=== PATIENT | female | born 1950 | race Caucasian/White ===

== ENCOUNTER 2021-08-01 11:34 | Emergency (ER) | payer MEDICARE, SELFPAY ==
--- NOTE | ~2021-08-01 | XR_ITS ---
EXAMINATION: LEFT HAND/WRIST. CLINICAL INFORMATION: Fall. COMPARISON: None TECHNIQUE: 4 views left hand and wrist FINDINGS: There is a comminuted fracture distal radius with intra-articular extension and mild dorsal angulation. No additional fracture seen. There is no abnormal joint effusion. The soft tissues are normal. XR/XR hand wrist LT IMPRESSION: Comminuted fracture distal radius with intra-articular extension. Moderate dorsal wrist soft tissue swelling.
[2021-08-01 11:36] VITALS: BP 135/78; PULSE 80; RESP 18; TEMP 36.6; O2SAT 98; BMI 25.8
--- NOTE | 2021-08-01 15:40 | ED.EXTPRO ---
HPI - Extremity Problem General Chief complaint: Extremity Injury, Upper Stated complaint: hand inj fall Time Seen by Provider: 08/01/21 15:17 Source: patient Mode of arrival: ambulatory Limitations: no limitations History of Present Illness HPI Narrative: 71-year-old female with a history of high cholesterol here with reports of left wrist pain after a fall which occurred just prior to arrival. Patient tells me that she was walking her dog when she slipped on ice landing on her left hand that was outstretched. Since then she has had pain and swelling of the wrist. She denies any numbness, tingling, warmth redness or fever. Related Data Allergies Allergy/AdvReac Type Severity Reaction Status Date / Time No Known Allergies Allergy Verified 08/01/21 15:17 Review of Systems Review of Systems: Yes all other systems are reviewed and are negative Constitutional: Constitutional: Reports no additional constitutional complaints, Denies body ache(s), Denies chills, Denies fever(s), Denies headache(s) and Denies weakness Eyes: Eyes: Reports no additional eye complaints and Denies change in vision ENT: Reports system reviewed and no additional complaints, except as documented, Denies dizziness, Denies headache(s), Denies nasal congestion, Denies nasal discharge and Denies neck pain Cardiovascular: Cardiovascular: Reports no additional cardiovascular complaints, Denies chest pain, Denies leg edema and Denies dyspnea Respiratory: Respiratory: Reports no additional respiratory complaints, Denies cough and Denies dyspnea Gastrointestinal: Gastrointestinal: Reports no additional gastrointestinal complaints, Denies abdominal pain, Denies diarrhea, Denies nausea and Denies vomiting Genitourinary: Genitourinary: Reports no additional female genitourinary complaints and Denies urinary incontinence Musculoskeletal: Musculoskeletal: Reports no additional musculoskeletal complaints, Denies back pain, Reports arthralgias, Reports joint swelling, Reports limited range of motion, Denies neck pain, Denies numbness and Denies tingling Integumentary/Breasts: Skin/Breast: Reports system reviewed and no additional complaints, except as docu and Denies rash Neurologic: Reports system reviewed and no additional complaints, except as documented, Denies Abnormal speech present, Denies dizziness, Denies headache(s), Denies numbness, Denies tingling and Denies weakness PMFSH Past Medical History Attestation statement: The following information was validated with the patient. Source: old records reviewed and nursing notes reviewed Social History Social History Advance Directives: Yes Advance Directives Information Provided: Yes Advance Directives on File: No Physical Exam Vital Signs: Vital Signs: Last Vital Signs Temp 98 F 08/01/21 11:36 Pulse 80 08/01/21 11:36 Resp 18 08/01/21 11:36 BP 135/78 08/01/21 11:36 Pulse Ox 98 08/01/21 11:36 BMI result Body Mass Index 25.8 Const: General: cooperative, healthy appearing, comfortable and no acute distress Orientation/consciousness: patient oriented x3 Limitations: no limitations HENMT: Head: Yes normal to inspection Ears: hearing grossly normal bilaterally General nose exam: Normal external nose present Face and sinus: Yes normal facial exam Mouth: Normal oral and palatal mucosa present Throat: Yes posterior oropharynx normal Eyes: General: appearance normal, both eyes and all related structures Pupils: Equal, round and reactive pupils present Neck: Neck: Yes normal visual inspection Chest: Chest palpation & inspection: normal inspection of the chest Resp: Effort & Inspection: normal respiratory effort Auscultation: clear to auscultation bilaterally Cardio: Rate: regular rate Rhythm: regular rhythm Peripheral pulses: Peripheral pulses 2+ throughout GI: Inspection: Yes normal to inspection Palpation (GI): Soft to palpation and nontender Auscultation: normal bowel sounds Back/Spine/Pelvis: Thoracic/Lumbar Spine: thoracic and lumbar spine normal to inspection Skin: General skin exam: no rashes or lesions noted Neuro: General: patient oriented x3, no focal motor deficits and normal sensation to monofilament Cranial nerves: Yes Equal, round and reactive pupils present Cognition (Neuro): normal cognition Speech: No Abnormal speech present Gait exam (Neuro): Normal gait present Motor exam (neuro): 5/5 motor strength present throughout Extrem: Other: To the left dorsal wrist there is swelling and tenderness over the radius. Limited range of motion of the wrist due to pain. Neurovascularly intact distally to the injury. No reports of elbow or shoulder pain with full range of motion General: Yes normal to inspection Course Course Course Narrative: 71-year-old female [id number] here with mechanical fall with FOOSH on the left upper extremity with swelling and tenderness over the distal radius with limited range of motion. X-ray show a comminuted intra-articular left radial fracture. Patient was placed in a sugar-tong splint and given a sling for home. I spoke to the orthopedic department Salbador CEBALLOS who will follow-up with the patient in the office. Patient tells me she has Tylenol and Motrin at home and this is sufficient for her pain. We discussed splint care, rice, follow-up. Reviewed worrisome signs and symptoms of when to return to the emergency department. Comfortable discharge home. MDM - Extremity (Nontraumatic) Medical Records Attestation: I reviewed the patient's medical records. Imaging Data left wrist x-ray: Attestation: I personally reviewed and interpreted this imaging study as follows: Radiologist's impression: [address] [address] XRay Report Signed Patient: Kathryn Kahn MR#: [id number] : 1950 Acct:[id number] Age/Sex: 71 / F ADM Date: 08/01/21 Loc: .ED Attending Dr: Ordering Physician: Generic ED Physician Date of Service: 08/01/21 Procedure(s): XR hand wrist LT Accession Number(s): [id number] cc: Generic ED Physician~ EXAMINATION: LEFT HAND/WRIST. CLINICAL INFORMATION: Fall.? COMPARISON: None? TECHNIQUE: 4 views left hand and wrist? FINDINGS: There is a comminuted fracture distal radius with intra-articular extension and mild dorsal angulation. No additional fracture seen. There is no abnormal joint effusion. The soft tissues are normal.? XR/XR hand wrist LT IMPRESSION: Comminuted fracture distal radius with intra-articular extension. Moderate dorsal wrist soft tissue swelling. ? Procedures Orthopedic Splinting/Casting Injury #1: Side: left Upper Extremity Injury Location: forearm Upper Extremity Immobilizer: sugar tong splint Discharge Plan Discharge Clinical Impression: Distal radius fracture, left Patient Disposition: Home, Self-Care Instructions: Wrist Fracture in Adults (ED), Splint Care (ED) Additional Instructions: Splint must stay on all times Do not get the splint wet Sling is for comfort only Elevate the extremity on 3 or more pillows Orthopedic should call you for an appointment tomorrow or Friday. If you do not hear from them by 12:00 tomorrow please call them Alternate Motrin and Tylenol for pain as needed Referrals: Chente Angel MD [Physician] - 2 days
== END 2021-08-01 15:51 | disposition home or self-care (01) ==
PROVIDERS: Emergency Provider Emergency Medicine
DX: S52.572A Other intraarticular fracture of lower end of left radius, initial encounter for closed fracture (principal); W00.0XXA Fall on same level due to ice and snow, initial encounter; Y93.K1 Activity, walking an animal; Y92.480 Sidewalk as the place of occurrence of the external cause; Y99.9 Unspecified external cause status
CPT/HCPCS: 29125; 73110; 73130; 99283; 99284

== ENCOUNTER 2021-08-07 07:12 | Outpatient (REF) | payer MEDICARE, SELFPAY ==
--- NOTE | ~2021-08-07 | XR_ITS ---
EXAMINATION: XR WRIST, LEFT CLINICAL INFORMATION: Follow-up fracture. COMPARISON: None TECHNIQUE: PA, lateral, and oblique views of the left wrist. FINDINGS: There is comminuted distal radial fracture with intra-articular extension, stable. There is mild prominent MR and dorsal soft tissue swelling. No additional fracture seen. Mild loss of first carpometacarpal joint space with periarticular spurring is noted. XR/XR wrist LT min 3V IMPRESSION: No change in the comminuted distal radial fracture with intra-articular extension and moderate soft tissue swelling compared to previous study 08/01/2021
== END 2021-08-07 07:13 | disposition home or self-care (01) ==
LOC: HO.HOSX 07:12
PROVIDERS: Visit Provider Physician Assistant
DX: Z01.818 Encounter for other preprocedural examination (principal); S52.502A Unspecified fracture of the lower end of left radius, initial encounter for closed fracture
CPT/HCPCS: 73110; 99202

== ENCOUNTER 2021-08-09 08:39 | Day surgery (SDC) | payer MEDICARE, SELFPAY ==
--- NOTE | 2021-08-08 09:40 | HO.ANESPROP2 ---
Documented by User: Keysha Padilla NP 08/08/21 09:41 HPI - Anesthesia Eval Consult details Narrative: 71yo F for Left Radius Distal Fracture ORIF, Carpal Tunnel Release PMFSH Active Problems Active Problems: All Active Problems (Updated 08/07/21 @ 15:32 by Perla Serrano PA-C) Fracture of left distal radius (Acute) Past Medical History Medical History High cholesterol Surgical History Surgical History History of colonoscopy Social History Social History Patient Tobacco Use Status: Never used Tobacco Second Hand Smoke Exposure: No Use of substances other than those prescribed or required for medical reasons: No Are you DNR?: No Advance Directives: No Advance Directives Information Provided: Yes Advance Directives on File: No Meds Allergies Allergy/AdvReac Type Severity Reaction Status Date / Time No Known Allergies Allergy Verified 08/07/21 14:29 Home Medications Medication Instructions Recorded Confirmed Last Taken Type acetaminophen 325 mg capsule 325 mg PO QID PRN 08/07/21 Unknown History (Tylenol) rosuvastatin 5 mg tablet 5 mg PO DAILY 08/07/21 Unknown History Exam Exam Date and Time: August 08, 2021 0940 Assessment and Plan Assessment Anesthesia Assessment: Chart Reviewed Documented by User: Jl Lozano MD 08/09/21 12:37 PMFSH Past Medical History Medical History High cholesterol Family History Family history of problems with anesthesia: No Surgical History Surgical History History of colonoscopy History of Problems with Anesthesia: No Social History Social History Patient Tobacco Use Status: Never used Tobacco Second Hand Smoke Exposure: No Use of substances other than those prescribed or required for medical reasons: No Are you DNR?: No Advance Directives: No Advance Directives Information Provided: Yes Advance Directives on File: No Meds Allergies Allergy/AdvReac Type Severity Reaction Status Date / Time No Known Allergies Allergy Verified 08/07/21 14:29 Home Medications Medication Instructions Recorded Confirmed Last Taken Type acetaminophen 325 mg capsule 325 mg PO QID PRN 08/07/21 Unknown History (Tylenol) rosuvastatin 5 mg tablet 5 mg PO DAILY 08/07/21 Unknown History Exam Airway Mallampati Class: I TM Dist: >3cm Neck ROM: Full Loose/Missing/Broken Teeth: Yes Assessment and Plan Assessment Anesthesia Assessment: Anesthesia Plan Discussed Final Anesthetic Review Family History of Problems with Anesthesia: No History of Problems with Anesthesia: No NPO: Yes ASA Class: II Final Preanesthetic Review: No Changes in Pt Med Stat, Meds/Allgs Chart Reviewed, Consent Obtained/Reviewed and Anes Risks/Benef Reviewed Patient Risk: Low Procedure Risk: Low Anesthetic Plan Anesthetic Plan: GA and Regional Block Disposition: Standard PACU
[2021-08-09] VITALS (7 sets, daily range): BP systolic 135–154; BP diastolic 66–95; PULSE 64–86; RESP 14–18; TEMP 36.2–37.2; O2SAT 92–99; BMI 25.8
--- NOTE | ~2021-08-09 | FL_ITS ---
EXAMINATION: XR FLUOROSCOPY WITH IMAGES CLINICAL INFORMATION: Reduction comminuted distal radial fracture. COMPARISON: Radiographs left wrist 08/07/2021, 08/01/2021 TECHNIQUE: Fluoroscopy performed by Dr. Brandy Banda. Fluoroscopy time: 40 seconds DAP: [id number] Images: 2 FINDINGS: Comminuted distal radial fracture is reduced with volar side plate and screws. Fracture fragments are in near-anatomic alignment. Ulnar variance is neutral. No dislocation. Hardware appears intact. FL/FL guidance in OR IMPRESSION: Status post open reduction internal fixation distal radial fracture.
[2021-08-09] MEDS: Lactated Ringers 1,000 ML 100 ML IVCONT (09:30)
--- NOTE | 2021-08-09 09:49 | P.OP_ITS ---
Operative Note Operative Note Date of Service: 08/09/21 Narrative: Operative Note Narrative: Preop diagnosis: 1. Left Distal radius fracture, comminuted intra-articular 2. Left acute carpal tunnel syndrome Postop diagnosis: Same Procedure: 1. Left Distal radius fracture open reduction internal fixation, 2 part intra- articular 2. Left carpal tunnel release Surgeon: Brandy Banda MD Anesthesia: General plus a regional block Findings: comminuted intra-articular distal radius fracture Implants: A 3 hole [employer] volar locking plate, with 5x 2.3 mm locking pegs/screws, and 3 3.5 mm cortical screws Tourniquet time: 44 minutes EBL: 5.0 ml Specimen: None Drains: None Complications: None Disposition: Brought to the recovery room in stable condition Plan: Follow-up in 10-14 days for wound check, suture removal and postop radiographs The patient will be placed in either a short-arm cast or a volar wrist splint. Encouraged no lifting of anything heavier than a cell phone. Please encourage active and passive range of motion of the digits. Follow-up at 4-5 weeks postop for repeat radiographs. Indications: The patient is a 71 year old woman with a comminuted intra- articular left distal radius fracture . The risks and benefits of operative treatment, including but not limited to risk of damage to blood vessels, nerves, tendons, infection, recurrence, persistent pain or numbness, incomplete resolution of preoperative symptoms, or need for further surgery were discussed with the patient and they wished to proceed with surgery. Procedure: Once consent was obtained patient was brought back to the operating suite and placed in the operating table in a supine position. A regional block was performed by the anesthesia team. Perioperative antibiotics and anesthesia was administered by the anesthesia team. A tourniquet was applied to the proximal aspect of the left upper extremity and the limb was prepped and draped in a standard surgical fashion. The limb was elevated exsanguinated with Esmarch bandage and the tourniquet inflated to 250 mm of mercury for a total tourniquet time of 44 minutes. Once assured that we had a good block, a 1.5 cm longitudinal incision was made centered over the left carpal tunnel. The incision was made through the skin to the subcutaneous tissues using a #15 blade. Dissection was made down to the level of the transverse carpal ligament with care being taken to protect the palmar cutaneous nerve. Once the transverse carpal ligament was clearly visualized, a longitudinal incision was made in the transverse carpal ligament 1st using a #15 blade, then using tenotomy scissors under direct visualization. Care was taken to look for and protect the motor branch of the median nerve when seen in this area. Once satisfied with our carpal tunnel release the wound was irrigated with normal saline. The FluoroScan was used throughout the case to assess our reduction, and facilitate implant placement. A gentle closed reduction was 1st performed on the patient's left distal radius fracture. Was assessed radiographically before proceeding with the reduction internal fixation. I then made an 8 cm longitudinal incision over the distal aspect of the flexor carpi radialis tendon. The incision was made through the skin to the subcutaneous tissue using a 15. Blade. Then carefully dissected down to flexor carpi radialis tendon she tenotomy scissors. The FCR tendon sheath was then incised longitudinally using tenotomy scissors under direct visualization. The FCR tendon was then retracted ulnarly. I then made a longitudinal incision in the volar forearm fascia through the floor of FCR tendon sheath using tenotomy scissors under direct visualization. I identified the interval between the radial artery and the flexor tendons. This interval was developed further with my index finger, releasing some of the muscular fibers of the flexor pollicis longus. A dull weatlander retractor was then placed. I then created an ulnarly based flap of the pronator quadratus by releasing the radial and distal edges using a 15. Blade. A Blandon elevator was used to elevate the pronator quadratus from the volar surface of the distal radius. This then revealed to us our distal radius fracture. An open reduction was then performed on our distal radius fracture. I then placed a short narrow [facility] on the volar surface of the distal radius. I placed a single K-wire through the distal aspect of the plate and into the distal radius. This was assessed using fluoroscopic images. I was satisfied with the placement of our plate. I then placed 5x 2.3 mm locking screws/pegs in the distal aspect of the plate and distal radius by 1st drilling bicortically with a 1.8 mm drill bit, measuring with a depth gauge, and placing the appropriate length locking screws/pegs. The placement of our plate and screws was then assessed again using fluoroscopic images. The once satisfied with the placement of the volar locking plate and screws on the distal aspect of the distal radius, the plate was then reduced to the shaft of the radius. I then placed 3 3.5 mm cortical screws to the proximal aspect of the plate and into the shaft of the radius. This was done by 1st drilling bicortically with a 2.8 mm drill bit, measuring with a depth gauge, and placing the appropriate length screw. Final radiographs were then obtained. The DRUJ was assessed and found to be stable on exam. I was satisfied with our reduction and placement of all implants. At this point the wound was irrigated with normal saline. The pronator quadratus was reduced back over the volar locking plate using some 3-0 Vicryl suture material. The tourniquet was then deflated and hemostasis was obtained with a brief period of local pressure and bipolar monopolar electrocautery. The subcutaneous layer was then reapproximated using some 4-0 Vicryl suture, and the skin edges were reapproximated using some 5 0 Prolene suture. The wound was then infiltrated with some 1% lidocaine with epinephrine postop pain control. A sterile dressing and a short dorsal splint allowing for active flexion and extension of the digits was applied. The patient appears to have tolerated the procedure well and with no complications. All digits were well vascularized conclusion of the case.
--- NOTE | 2021-08-09 09:49 | MHC.SHP ---
Pre-Procedural Eval Section A Date of Service: 08/09/21 The patient is an INPATIENT: No Changes since office visit: No Cold of Flu in the past 2 weeks, No New Medical Problems, No Changes in Medication and No Patient answered all questions The History & Physical has been completed within 30 days and I have reviewed it.: Yes Section B Chief Complaint: carpal tunnel release,fx of the lower end left Allergies: Allergies Allergy/AdvReac Type Severity Reaction Status Date / Time No Known Allergies Allergy Verified 08/07/21 14:29 Plan I have reviewed the history and physical and performed a pertinent physical examination on my patient. No changes have occurred unless specified.
[2021-08-09] MEDS: ondansetron HCL 4 MG/2 ML VIAL IVPUSH (12:32)
== END 2021-08-09 13:47 | disposition home or self-care (01) ==
PROVIDERS: Visit Provider Orthopaedic Surgery
PROC: (CPT 25608; principal; 2021-08-09 10:30)
PROC: (CPT 64721; 2021-08-09 10:30)
DX: S52.572A Other intraarticular fracture of lower end of left radius, initial encounter for closed fracture (principal); G56.02 Carpal tunnel syndrome, left upper limb; W00.0XXA Fall on same level due to ice and snow, initial encounter; Y93.K1 Activity, walking an animal; Y92.9 Unspecified place or not applicable; Y99.8 Other external cause status; E78.00 Pure hypercholesterolemia, unspecified; Z79.899 Other long term (current) drug therapy
CPT/HCPCS: 25608; 64721; C1713; C1769; J0690; J2250; J2405

== ENCOUNTER 2021-08-22 08:39 | Outpatient (REF) | payer MEDICARE, SELFPAY ==
--- NOTE | ~2021-08-22 | XR_ITS ---
EXAMINATION: XR WRIST, LEFT CLINICAL INFORMATION: Fracture distal radius, follow-up. COMPARISON: Fluoroscopic spot views 08/09/2021, radiographs left wrist 08/07/2021 TECHNIQUE: Left wrist is imaged in 3 views. FINDINGS: The distal left radial fracture is reduced with volar side plate and screws. Hardware is intact. Fracture fragments are in near-anatomic alignment. Ulnar variance is neutral. There is no osteolysis or periostitis. Fracture lines are still faintly visible. Again, there are degenerative changes first carpometacarpal joint. XR/XR wrist LT min 3V IMPRESSION: Status post reduction internal fixation distal left radial fracture. Hardware intact. Near-anatomic alignment.
== END 2021-08-22 08:40 | disposition home or self-care (01) ==
LOC: HO.HOSX 08:39
PROVIDERS: Visit Provider Orthopaedic Surgery
DX: M25.532 Pain in left wrist (principal); S52.572A Other intraarticular fracture of lower end of left radius, initial encounter for closed fracture; X58.XXXA Exposure to other specified factors, initial encounter; Y93.9 Activity, unspecified; Y92.9 Unspecified place or not applicable; Y99.8 Other external cause status; G56.02 Carpal tunnel syndrome, left upper limb; Z48.02 Encounter for removal of sutures
CPT/HCPCS: 73110; 99212

== ENCOUNTER 2021-09-12 08:15 | Outpatient (REF) | payer MEDICARE, SELFPAY ==
--- NOTE | ~2021-09-12 | XR_ITS ---
EXAMINATION: XR WRIST, LEFT CLINICAL INFORMATION: Pain COMPARISON: X-ray 09-09, 08/07/2021 TECHNIQUE: PA, lateral, and oblique views of the left wrist. FINDINGS: Volar plate and screws transfixing a distal radial fracture. Hardware is intact. Stable position and alignment of the fracture. No significant callus formation or periosteal changes are seen. Bones are osteopenic. First CMC arthritis. No new/acute fracture seen. XR/XR wrist LT min 3V IMPRESSION: Surgical fixation of distal radial intra-articular fracture. No obvious manifestations of healing.
== END 2021-09-12 08:16 | disposition home or self-care (01) ==
LOC: HO.HOSX 08:15
PROVIDERS: Visit Provider Orthopaedic Surgery
DX: S52.502D Unspecified fracture of the lower end of left radius, subsequent encounter for closed fracture with routine healing (principal); X58.XXXD Exposure to other specified factors, subsequent encounter; Z87.39 Personal history of other diseases of the musculoskeletal system and connective tissue
CPT/HCPCS: 73110; 99212

== ENCOUNTER 2021-10-23 08:49 | Outpatient (REF) | payer MEDICARE, SELFPAY ==
--- NOTE | ~2021-10-23 | XR_ITS ---
EXAMINATION: XR WRIST, LEFT CLINICAL INFORMATION: Pain. COMPARISON: None. TECHNIQUE: PA, lateral, and oblique views of the left wrist. FINDINGS: There is a volar plate and screws along the distal radius for an old healed fracture. The distal fibula is unremarkable. There is diffuse osteopenia. There is loss of radioulnar carpal joint space. The soft tissues are normal. XR/XR wrist LT min 3V IMPRESSION: Diffuse osteopenia. Old healed fracture distal radius extending to the joint space stabilized with a volar plate and screws.
== END 2021-10-23 08:50 | disposition home or self-care (01) ==
LOC: HO.HOSX 08:49
PROVIDERS: Visit Provider Orthopaedic Surgery
DX: S52.502D Unspecified fracture of the lower end of left radius, subsequent encounter for closed fracture with routine healing (principal); G56.02 Carpal tunnel syndrome, left upper limb
CPT/HCPCS: 73110; 99212

== ENCOUNTER 2021-11-26 11:00 | Outpatient (RCR) | payer MEDICARE, SELFPAY ==
--- NOTE | 2021-10-12 12:13 | MHC.OT.OEV ---
[address] [phone] F: [phone] Occupational Therapy Evaluation Diagnosis: Left ORIF for DR gus and left CTR Date of Onset: 08/01/21 Date of Surgery: 08/09/21 Attending Provider: Brandy Banda MD Prescribed Treatment: Eval and vianca VANG Follow Up Appointment: 10/23/21 History of Current Condition: Pt reports a FOOSH due slipping on ice. Surgical repair by Dr Shabazz. 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 Brief sharp pains Aggravating Factors: Forcing thumb op, carrying a tray.. assisting the right , or assisting sit to stand, Alleviating Factors: Skin and Soft Tissue Assessment Skin and Soft Tissue: Comments: Nerve assessment Ulnar Nerve: Median Nerve: Radial Nerve: Comments: Sensory Assessment Temperature: Light Touch: WNL Proprioception: Vibration: Comments: [place] Berenice monofilament 2.83 D1-5 normal Edema Assessment Upper Extremity: Right Impaired Lower Extremity: Comments: Mild left wrist and hand edema Dexterity Assessment Dexterity: Left Impaired Comments: Functional dexterity test Right 29 sec Left 101 sec Left hand tremor and dropping pegs Special Tests Comments: AROM(PROM) Strength Cervical Cervical Flexion: Cervical Extension: Cervical Lateral Flexion: Cervical Rotation: Comments: Shoulder Flexion: Extension: Abduction: Internal Rotation: External Rotation: Comments: Flexion: Extension: Abduction: Internal Rotation: External Rotation: Comments: Elbow Flexion: Extension: Pronation: Supination: Comments: WFl Flexion: Extension: Pronation: Supination: Comments: WNL Wrist Flexion: R 75 L 40 Extension: R 75 L 45 Ulnar Deviation: Radial Deviation: Comments: Flexion: Extension: Ulnar Deviation: Radial Deviation: Comments: Thumb Thumb CMC Flexion: Thumb MCP Flexion: Thumb IP Flexion: Radial Abduction: WFL Palmar Abduction: [place] (Kapandji 0-10): R 10 L 6 Comments: Left discomfort at end range Digits Index MCP: PIP: DIP: Long MCP: PIP: DIP: Ring MCP: PIP: DIP: Small MCP: PIP: DIP: Comments: WFL . Stiff at IP jts. ~ .5 cm to DPC Gross Grasp: R 65 lb L 7 lb Lateral Pinch: R 12 lb L 2 lb Two-Point Pinch: R 8 lb L 5 lb Three-Jaw Dain: R 13 lb L 5 lb Comments: Left hand tremor. 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 Patient demonstrates Patient verbalizes Barriers to Learning: None Readiness for Learning: Accepting Who was educated? Patient Comments: Plan of Care Assessment: Pt is a 71 yo female 9 wks s/p left ORIF and CTR for a comminuted intra articular radius fx due to a FOOSH Today she presents with left wrist and hand impairments in ROM, strength, scar hypersensitivity and hand dexterity. CTS sx are resolved. 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 and is highly motivated to regain her left hand and arm function She will benefit from OT to address the problems stated STG Duration: 2 wks Short Term Goals: Indep with her HEP Indep with scar desensitization Wrist ext to 55 deg Wrist flex to 55 deg Thumb op to stage [address] education [address] instructor to > 10 lb LTG Duration: 4 wk Therapeutic Activities Services Worker Goals: Tolerate moderate brushing at surgical scar Wrist ext to 60 deg Wrist flex to 60 deg Thumb op to stage 8 K[place]elguhr Regenerator Operator to >20 lb Lift and carry up to 5 lb with left hand Reports mild difficulty with daily activities with modifications as needed Quick DASH to < 30 pts Frequency and Duration: The patient will be seen 2x 4 wks Treatment Plan: Therapeutic Exercise Therapeutic Activity Home Exercise Program Patient Education Desensitization/Sensory Re-ed Edema Control ADL Training Fluidotherapy MHP Joint Mobilization Soft Tissue Mobilization Scar management Electronically Signed By: Olive Vaughn OT CHFeliciano CLT Reviewed/agree with student documentation: N/A Therapist: Please sign and return to therapist, Thank you for your referral.
--- NOTE | 2021-11-27 08:17 | MHC.OT.DC ---
[address] [phone] F: [phone] Occupational Therapy Discharge Note Provider: Brandy Banda MD Diagnosis: Left ORIF for DR gus and left CTR Date of Surgery: 08/09/21 Date of Evaluation: 10/12/21 Date of Discharge: 11/26/21 Treatments to Date: 8 Cancellations to Date: No Shows to Date: Discharge Status: Achieved Goals Improved Function Independent with HEP Discharge Summary: Improving ROM, strength and function improving all WFL. Pt is able to do painfree mod heavy yard work with modifications. She is indep with her HEP and should continue to improve in strength and ROM AROM wrist ext 60/60 deg Right 70/70 Thumb op to SF MP Carton Folder 30 lb Electronically Signed By: Olive Vaughn OT CHT CLT Reviewed/agree with student documentation: N/A Therapist: Please Sign and return to therapist, thank you for your referral.
== END 2022-01-17 16:20 | disposition home or self-care (01) ==
LOC: HO.OT 11:00
PROVIDERS: PCP Family Medicine; Visit Provider Orthopaedic Surgery
DX: S52.502A Unspecified fracture of the lower end of left radius, initial encounter for closed fracture (principal); G56.02 Carpal tunnel syndrome, left upper limb
CPT/HCPCS: 97035; 97110; 97140; 97165; 97530

== ENCOUNTER 2022-03-22 07:02 | Emergency (ER) | payer MEDICARE, SELFPAY ==
--- NOTE | ~2022-03-22 | XR_ITS ---
EXAMINATION: XR ELBOW-LEFT XR WRIST-LEFT CLINICAL INFORMATION: Status post fall. COMPARISON: Radiographs of the left wrist done on 10/23/2021. TECHNIQUE: 4 views of the left wrist and 3 views of the left elbow were obtained. FINDINGS: Left wrist: Moderate-severe diffuse osteopenia. Postsurgical changes of ORIF is noted at the left distal radius with intact hardware. 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 Previously documented subtle cortical break at the articular surface of the radius remain unchanged. Specifically, no evidence of any new abnormality. Left elbow: The bony alignments are intact. The cortices are intact. Articular margins, joint space appear unremarkable. The soft tissues are unremarkable. No evidence of any joint effusion. XR/XR elbow LT min 3V IMPRESSION: 1. The radiographs of the left wrist shows stable postsurgical changes at left distal radius with intact hardware and superimposed arthropathy at the radiocarpal and the first carpometacarpal joint and underlying moderate to severe diffuse osteopenia, appear stable since most recent prior available radiographs dated 10/23/2021. 2. No radiographic evidence of any acute fracture, subluxation or dislocation at the left elbow, and no joint effusion.
--- NOTE | ~2022-03-22 | CT_ITS ---
EXAMINATION: CT CHEST, ABDOMEN AND PELVIS WITHOUT CONTRAST CLINICAL INFORMATION: Pain status post fall, rule out traumatic injury. COMPARISON: None TECHNIQUE: Multidetector volumetric imaging was performed of the chest, abdomen and pelvis without administration of intravenous contrast. Sagittal and coronal reformatted images were obtained on the technologist's workstation. Plaque of intravenous and oral contrast limits visceral evaluation. This CT examination was performed using dose optimization techniques as appropriate, variously including the following: *Automated exposure control *Adjustment of mA and/or kV according to patient size (this includes techniques or standardized protocols for targeted exams where dose is matched to indication/reason for exam; i.e. extremities or head) DLP: 802 mGy-cm FINDINGS: CHEST: LUNGS/PLEURA/AIRWAYS: No focal consolidation or pleural effusions. No suspicious pulmonary nodules. Mucous plugging anteriorly in the right middle lobe with mild adjacent atelectasis/scarring (image 271, series 5). Calcified granulomas are seen measuring 0.3 cm in the upper lobe laterally (image 205, series 5) as well as anterolaterally in right middle lobe measures 0.2 cm (image 264, series 5). Mild linear atelectasis/scarring is seen in the right middle lobe, lingula and lung bases. The airways are patent. MEDIASTINUM: The visualized thyroid gland is unremarkable. Mild calcifications are seen in the aortic arch without significant dilatation. No coronary artery calcifications. No pericardial effusion. CHEST LYMPH NODES: No lymphadenopathy. SOFT TISSUES: Unremarkable. MUSCULOSKELETAL: Mild multilevel degenerative changes in the thoracic spine. No acute fracture. The ribs appear intact. ABDOMEN/PELVIS: LIVER, GALLBLADDER, AND BILIARY TREE: Unremarkable. PANCREAS: Unremarkable. SPLEEN: Unremarkable. ADRENAL GLANDS: Unremarkable. KIDNEYS AND URETERS: Unremarkable. BLADDER: Unremarkable. GASTROINTESTINAL TRACT: The stomach, small bowel and appendix are unremarkable. The distal colon shows mild diverticulosis without surrounding abnormality. The rectum is unremarkable. LYMPH NODES: Unremarkable. VASCULAR: Unremarkable. PELVIC VISCERA: Unremarkable. MUSCULOSKELETAL: There is an approximate 20% superior endplate compression deformity of L3. L5-S1 mild degenerative disc disease. SOFT TISSUES: Very small fat-containing umbilical hernia. CT/CT abdomen wo IV con IMPRESSION: 1. Approximately 20% superior plate compression deformity of the L3 vertebral body is of indeterminate age. If the patient is experiencing acute back pain, further evaluation with MRI is recommended to better assess for acuity. No other definitive acute traumatic injury. 2. Several nonacute incidental findings as detailed above without associated abnormality.
--- NOTE | ~2022-03-22 | XR_ITS ---
EXAMINATION: XR ELBOW-LEFT XR WRIST-LEFT CLINICAL INFORMATION: Status post fall. COMPARISON: Radiographs of the left wrist done on 10/23/2021. TECHNIQUE: 4 views of the left wrist and 3 views of the left elbow were obtained. FINDINGS: Left wrist: Moderate-severe diffuse osteopenia. Postsurgical changes of ORIF is noted at the left distal radius with intact hardware. 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 Previously documented subtle cortical break at the articular surface of the radius remain unchanged. Specifically, no evidence of any new abnormality. Left elbow: The bony alignments are intact. The cortices are intact. Articular margins, joint space appear unremarkable. The soft tissues are unremarkable. No evidence of any joint effusion. XR/XR wrist LT 2V IMPRESSION: 1. The radiographs of the left wrist shows stable postsurgical changes at left distal radius with intact hardware and superimposed arthropathy at the radiocarpal and the first carpometacarpal joint and underlying moderate to severe diffuse osteopenia, appear stable since most recent prior available radiographs dated 10/23/2021. 2. No radiographic evidence of any acute fracture, subluxation or dislocation at the left elbow, and no joint effusion.
[2022-03-22 07:27] VITALS: BP 148/87; PULSE 83; RESP 16; TEMP 37.1; O2SAT 98; BMI 25.5
--- NOTE | 2022-03-22 07:41 | PC.NURSE ---
PT states while walking her dog last night, dog pulled leash and had a fall. Denies hitting head/LOC. Today PT is complaining of upper left sided rib pain.
--- NOTE | 2022-03-22 07:44 | ED.EXTPRO ---
HPI - Extremity Problem General Chief complaint: Extremity Injury, Upper Stated complaint: fall Time Seen by Provider: 03/22/22 07:32 Source: patient Mode of arrival: ambulatory Limitations: no limitations History of Present Illness HPI Narrative: 72 yo female with hx of hyperlipidemia and L wrist ORIF back in july was walking her dog last night when she got pulled. She notes that she fell to the ground on left side and tried to protect herself - landed on left side with L arm tucked under her. Causing pain in LUQ and L ribs as well as L wrist/elbow. No head/neck injury or LOC. Not on blood thinners Complaint: other (ribs/LUQ pain) Onset (ago): day(s) (last night) Pain Consistency: constant Location: left and upper extremity Quality: aching and dull Radiation: none Relieving factors: immobilization Exacerbating factors: palpation Associated symptoms: denies other symptoms Context: other (tripped walking dog) Related Data Home Medications Medication Instructions Recorded Confirmed acetaminophen 325 mg capsule 325 mg PO QID PRN 08/07/21 (Tylenol) rosuvastatin 5 mg tablet 5 mg PO DAILY 08/07/21 Previous Rx's Medication Instructions Recorded ibuprofen 600 mg tablet 600 mg PO Q6-8H PRN pain #40 tabs 08/09/21 hydrocodone 5 mg-acetaminophen 325 1 tab PO Q6H PRN pain #10 tabs 03/22/22 mg tablet lidocaine 5 % topical patch 1 patch topical DAILY #30 ea 03/22/22 Allergies Allergy/AdvReac Type Severity Reaction Status Date / Time No Known Allergies Allergy Verified 10/23/21 14:48 Review of Systems Review of Systems: Constitutional : No Weight loss, No Fever, No Chills ENT/Mouth : No sore throat, No Rhinorrhea Eyes: No Eye Pain, No Swelling Cardiovascular : pos Chest Pain, no SOB, no Dyspnea on Exertion, No Orthopnea, No Edema, No Palpitations Respiratory : No Cough, No Sputum Gastrointestinal : no Nausea, No Vomiting, No Diarrhea, pos abdominal Pain, No Hematochezia, No Melena Genitourinary : No Dysuria, No Urinary Frequency Musculoskeletal : pos joint pain, No Myalgias, No Joint Swelling Skin : No Skin Lesions, No rash Neuro : No Weakness, No Numbness, No Dizziness, No Headache Psych : No Anxiety/Panic, No Depression Heme/Lymph: No Bruising, No Lymphadenopathy Endocrine : No Polyuria, No Polydipsia All other systems reviewed and are negative [facility] Past Medical History Attestation statement: The following information was validated with the patient. 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 Oriented X3. No acute distress. Eyes: Pupils equal, round and reactive to light. ENT: Pharynx normal. Neck: Normal inspection. Neck supple. CVS: Normal heart rate and rhythm. Pulses normal. Chest wall: ttp along left anterior chest wall Respiratory: No respiratory distress. Breath sounds normal. Abdomen: Soft and very mild LUQ ttp no rebound or guarding Skin: Skin warm and dry. Normal skin color. Normal skin turgor. Extremities: No lower extremity edema. ttp along left wrist area and L elbow no swelling NV Intact no deformity Neuro: Oriented X 3. No motor deficit. No sensory deficit. Course Course Course Narrative: no rib or spleen injury xrays negative possible L3 compression fracture MDM - Extremity (Nontraumatic) MDM Narrative Medical decision making narrative: 72 yo female with hx of hyperlipidimia, L wrist fracture s/p mechanical fall with L rib pain, LUQ pain (mild on exam) L UE injury - no head or neck injury no LOC and not on blood thinners. At this time will need CT chest/abdomen for isolated injury to L rib/spleen. Xrays of L wrist and elbow. Declines pain medications at this time she is HD stable. Dispo per results and findings. Discharge Plan Discharge Clinical Impression: Contusion of rib Qualifiers: Encounter type: initial encounter Laterality: left Qualified Code(s): S20.212A - Contusion of left front wall of thorax, initial encounter Patient Disposition: Home, Self-Care Instructions: Rib Contusion (ED) Additional Instructions: return to ED for any worsening symptoms or concerns POSSIBLE LUMBAR COMPRESSION FRACTURE L 3 UNSURE IF THIS IS ACUTE OR OLD FINDINGS: CHEST: LUNGS/PLEURA/AIRWAYS: No focal consolidation or pleural effusions. No suspicious pulmonary nodules. Mucous plugging anteriorly in the right middle lobe with mild adjacent atelectasis/scarring (image 271, series 5). Calcified granulomas are seen measuring 0.3 cm in the upper lobe laterally (image 205, series 5) as well as anterolaterally in right middle lobe measures 0.2 cm (image 264, series 5). Mild linear atelectasis/scarring is seen in the right middle lobe, lingula and lung bases. The airways are patent. MEDIASTINUM: The visualized thyroid gland is unremarkable. Mild calcifications are seen in the aortic arch without significant dilatation. No coronary artery calcifications. No pericardial effusion. CHEST LYMPH NODES: No lymphadenopathy. SOFT TISSUES: Unremarkable. MUSCULOSKELETAL: Mild multilevel degenerative changes in the thoracic spine. No acute fracture. The ribs appear intact. ABDOMEN/PELVIS: LIVER, GALLBLADDER, AND BILIARY TREE: Unremarkable. PANCREAS: Unremarkable.? SPLEEN: Unremarkable.? ADRENAL GLANDS: Unremarkable.? KIDNEYS AND URETERS: Unremarkable. BLADDER: Unremarkable.? GASTROINTESTINAL TRACT: The stomach, small bowel and appendix are unremarkable. The distal colon shows mild diverticulosis without surrounding abnormality. The rectum is unremarkable. LYMPH NODES: Unremarkable. VASCULAR: Unremarkable. PELVIC VISCERA: Unremarkable. MUSCULOSKELETAL: There is an approximate 20% superior endplate compression deformity of L3. L5-S1 mild degenerative disc disease. SOFT TISSUES: Very small fat-containing umbilical hernia. CT/CT chest wo IV con IMPRESSION: ? 1. Approximately 20% superior plate compression deformity of the L3 vertebral body is of indeterminate age. If the patient is experiencing acute back pain, further evaluation with MRI is recommended to better assess for acuity. No other definitive acute traumatic injury. 2. Several nonacute incidental findings as detailed above without associated abnormality. Prescriptions: New hydrocodone-acetaminophen 5-325 mg tablet 1 tab PO Q6H PRN (Reason: pain) Qty: 10 0RF Rx Instructions: partial fill okay; Partial Fill upon patient request. lidocaine 5 % adhesive patch,medicated 1 patch topical DAILY Qty: 30 0RF Rx Instructions: leave on most painful area for up to 12 hrs No Action ibuprofen 600 mg tablet 600 mg PO Q6-8H PRN (Reason: pain) Qty: 40 0RF rosuvastatin 5 mg tablet 5 mg PO DAILY acetaminophen [Tylenol] 325 mg capsule 325 mg PO QID PRN Referrals: America Mendiola MD [Primary Care Provider] - 03/25/22
--- OUTSIDE RECORDS SUMMARY | 2022-03-22 08:17 | XMS_ITS | Continuity of Care Document ---
:1950 Author Organization [facility] Address [address] [place] [address]- Care Team Providers Name Role Phone Not on Staff, PCP Primary Care Physician Unavailable Encounter [facility] Date(s): 05/05/20 - 06/04/20 [facility] [address] [place] [address]- Attending Physician: Harper Russ Admitting Physician: Harper Russ Referring Physician: Harper Russ Allergies, Adverse Reactions, Alerts Substance Reaction Severity Status NKA Active Medications Rosuvastatin By Mouth, Daily, 0 Refills, Maintenance, 05/05/20 13:44:00 EST, Partial fill upon patient request Start Date: 05/05/20 Status: Ordered Social History Social History Type Response Sex Female
--- OUTSIDE RECORDS SUMMARY | 2022-03-22 08:17 | XMS_ITS | Continuity of Care Document ---
:1950 Author Organization [facility] Address [address] [place] [address]- Care Team Providers Name Role Phone Ashvin VANG, America Zamudio Primary Care Physician [phone] Encounter [facility] Date(s): 11/02/20 - 11/09/20 [facility] [address] [place] [address]- Encounter Diagnosis Hyperlipidemia (Discharge Diagnosis) - 11/02/20 Herpes genitalis (Discharge Diagnosis) - 11/02/20 Cough (Discharge Diagnosis) - 11/02/20 Newly recognized murmur (Discharge Diagnosis) - 11/02/20 Fatigue (Discharge Diagnosis) - 11/02/20 Tick bite (Discharge Diagnosis) - 11/02/20 Attending Physician: America Lock MD Allergies, Adverse Reactions, Alerts Substance Reaction Severity Status Pollen Mild Active Other Environmental Allergy1 Act raman 1seasonal Immunizations Given and Recorded Vaccine Date Status Refusal Reason SARS-CoV-2 (COVID-19) mRNA BNT-162b2 vac 10/02/20 Recorde d Medications Savita By Mouth, 0 Refills, Maintenance, 09/25/20 11:52:00 EDT, Partial fill upon patient request if the prescription is for a schedule II opioid drug. Start Date: 09/25/20 Status: Ordereddoxycycline hyclate 100 mg oral enteric coated tablet 1 tablet = 100 mg, By Mouth, 2 times a day, for 14 days, may take with food to minimize abdominal discomfort, # 28 tablet, 0 Refills, Acute 11/16/20 16:55:00 EDT, 11/02/20 16:55:00 EDT, CR Tablet, [id number], Partial fill upon patient request... Start Date: 11/02/20 Stop Date: 11/16/20 Status: OrderedEscitalopram By Mouth, Daily, 0 Refills, Maintenance, 09/25/20 11:53:00 EDT, Partial fill upon patient request ifthe prescription is for a schedule II opioid drug. Start Date: 09/25/20 Status: Orderedescitalopram 10 mg oral tablet 1 tablet = 10 mg, By Mouth, Daily, takes PRN, 0 Refills, Maintenance, 11/02/20 14:31:00 EDT, Partialfill upon patient request if the prescription is for a schedule II opioid drug. Start Date: 11/02/20 Status: OrderedGabapentin By Mouth, 0 Refills, Maintenance, 09/25/20 11:53:00 EDT, Partial fill upon patient request if the prescription is for a schedule II opioid drug. Start Date: 09/25/20 Status: Orderedgabapentin 100 mg oral capsule 100 mg, 1, capsule, By Mouth, 3 times a day, takes 1-3 tablets daily prn, # 90 capsule, Refills 0, Maintenance, 11/02/20 14:32:00 EDT, Partial fill upon patient request if the prescription is for a schedule II opioid drug. Start Date: 11/02/20 Status: OrderedmetroNIDAZOLE 0.75% topical cream 1 application, Topically, 2 times a day, # 45 Gm, 0 Refills, Maintenance, 11/02/20 14:33:00 EDT, Cream, Partial fill upon patient request if the prescription is for a schedule II opioid drug. Start Date: 11/02/20 Status: OrderedRosuvastatin By Mouth, Daily, 0 Refills, Maintenance, 05/05/20 13:44:00 EST, Partial fill upon patient request Start Date: 05/05/20 Status: Orderedrosuvastatin 10 mg oral tablet 1 tablet = 10 mg, By Mouth, Daily, # 90 tablet, 0 Refills, Maintenance, 11/02/20 14:30:00 EDT, Tablet, Partial fill upon patient request if the prescription is for a schedule II opioid drug. Start Date: 11/02/20 Status: OrderedvalACYclovir 500 mg oral tablet See Instructions, PRN, Refills 0, Maintenance, 11/02/20 14:31:00 EDT, Instructions Replace Required Details, Partial fill upon patient request if the prescription is for a schedule II opioid drug. Start Date: 11/02/20 Status: Ordered Problem List Condition Effective Dates Status Health Status Informant Herpes simplex 2(Confirmed) Active Hyperlipidemia(Confirmed) Active Diagnosis Diagnosis Type Effective Dates Health Clinical Infor mant Status Service Hyperlipidemia Discharge 11/02/20 Diagnosis Herpes genitalis Discharge 11/02/20 Diagnosis Cough Discharge 11/02/20 Diagnosis Newly recognized Discharge 11/02/20 murmur Diagnosis Fatigue Discharge 11/02/20 Diagnosis Tick bite Discharge 11/02/20 Diagnosis Procedures Procedure Date Related Diagnosis Body Site Status Colposcopy of the vulva; Com pleted Vital Signs Most recent to oldest [Reference Range]: 1 Height 166.7 cm (11/02/20 2:23 PM) Weight 72.8 kg (11/02/20 2:23 PM) Pulse Rate [55-90 bpm] 60 bpm (11/02/20 2:23 PM) Body Mass Index [18.5-24.99] 26.2 *H* (11/02/20 2:23 PM) Blood Pressure [90-138/55-84 mm Hg] 137/82 mm Hg (11/02/20 2:23 PM) Blood pressure sites Arm, right (11/02/20 2:23 PM) Weight Obtained Via Standing scale (11/02/20 2:23 PM) Social History Social History Type Response Smoking Status Never (less than 100 in life time) entered on: 11/02/20 Sex Female
--- OUTSIDE RECORDS SUMMARY | 2022-03-22 08:17 | XMS_ITS | Continuity of Care Document ---
:1950 Author Organization [facility] Address [address] [place] [address]- Care Team Providers Name Role Phone America Lock MD Primary Care Physician Encounter [facility] Date(s): 12/04/20 - 12/11/20 [facility] [address] [address]- Attending Physician: America Lock MD Admitting Physician: America Lock MD Referring Physician: America Lock MD Allergies, Adverse Reactions, [...] II opioid drug. Start Date: 09/25/20 Status: OrderedEscitalopram By Mouth, Daily, 0 Refills, [...] Informant Herpes simplex 2(Confirmed) Active Hyperlipidemia(Confirmed) Active Social History Social History Type Response Smoking Status Never (less than 100 in life time) entered on: 11/02/20 Sex Female
--- OUTSIDE RECORDS SUMMARY | 2022-03-22 08:17 | XMS_ITS | Continuity of Care Document ---
:1950 Author Organization [facility] Address [address] [place] [address]- Care Team Providers Name Role Phone Ashvin VANG, America Zamudio Primary Care Physician Encounter [facility] Date(s): 09/25/20 - 10/25/20 [facility] [address] [place] [address]- Attending Physician: Harper Russ Admitting Physician: Admtr, Harper Referring Physician: Admtr, Ar8 Allergies, Adverse Reactions, Alerts Substance Reaction Severity Status Seasonale Active Medications Savita By Mouth, 0 Refills, Maintenance, 09/25/20 11:52:00 EDT, Partial fill upon patient request if the prescription is for a schedule II opioid drug. Start Date: 09/25/20 Status: OrderedEscitalopram By Mouth, Daily, 0 Refills, Maintenance, 09/25/20 11:53:00 EDT, Partial fill upon patient request ifthe prescription is for a schedule II opioid drug. Start Date: 09/25/20 Status: OrderedGabapentin By Mouth, 0 Refills, Maintenance, 09/25/20 11:53:00 EDT, Partial fill upon patient request if the prescription is for a schedule II opioid drug. Start Date: 09/25/20 Status: OrderedRosuvastatin By Mouth, Daily, 0 Refills, Maintenance, 05/05/20 13:44:00 EST, Partial fill upon patient request Start Date: 05/05/20 Status: Ordered Social History Social History Type Response Sex Female
--- OUTSIDE RECORDS SUMMARY | 2022-03-22 08:17 | XMS_ITS | Continuity of Care Document ---
:1950 Author Organization [facility] Address [address] [place] [address]- Care Team Providers Name Role Phone Ashvin VANG, America Zamudio Primary Care Physician Encounter [facility] Date(s): 01/01/21 - 01/31/21 [facility] [address] [place] [address]- Allergies, Adverse Reactions, Alerts Substance Reaction Severity [...]
--- OUTSIDE RECORDS SUMMARY | 2022-03-22 08:17 | XMS_ITS | Continuity of Care Document ---
:1950 Author Organization [facility] Address [address] [place] [id number]- Care Team Providers Name Role Phone Ashvin VANG, America Zamudio Primary Care Physician Encounter [facility] Date(s): 12/04/20 - 01/03/21 [facility] [address] [address]- Attending Physician: Harper Russ Admitting Physician: Harper Russ Referring Physician: Admtr, Harper Allergies, Adverse Reactions, Alerts Substance Reaction Severity [...]
--- OUTSIDE RECORDS SUMMARY | 2022-03-22 08:17 | XMS_ITS | Continuity of Care Document ---
:1950 Author Organization [facility] Address [address] [place] [address]- Care Team Providers Name Role Phone Ashvin VANG, America Zamudio Primary Care Physician Encounter [facility] Date(s): 02/06/22 - 03/08/22 [facility] [address], [place] [address] Allergies, Adverse Reactions, Alerts Substance Reaction Severity Status Pollen Mild Active Other Environmental Allergy1 Act raman 1seasonal Immunizations Given and Recorded Vaccine Date Status Refusal Reason pneumococcal 20-valent conjugate vaccine1 02/22/22 Given tetanus-diphtheria toxoids (Td)2 02/22/22 Given SARS-CoV-2 mRNA (weoifwo-esev-uxdiq) vax 01/23/22 Recorde d SARS-CoV-2 mRNA (aeuuxnm-ozmw-jxxag) vax3 10/11/21 Given SARS-CoV-2 (COVID-19) mRNA BNT-162b2 vac 06/20/21 Recorde d SARS-CoV-2 (COVID-19) mRNA BNT-162b2 vac 10/02/20 Recorde d SARS-CoV-2 (COVID-19) mRNA BNT-162b2 vac 09/14/20 Recorde d SARS-CoV-2 (COVID-19) mRNA BNT-162b2 vac 08/12/20 Recorde d influenza virus vaccine, inactivated 04/10/21 Recorded influenza virus vaccine, inactivated 04/07/19 Recorded influenza virus vaccine, inactivated 04/12/18 Recorded influenza virus vaccine, inactivated 03/12/17 Recorded influenza virus vaccine, inactivated 03/10/16 Recorded pneumococcal 23-valent vaccine 03/12/17 Recorded 1Result Comment: [facility]: [id number] Comment: [facility]: [id number] Comment: [facility]: [id number] Medications Savita By Mouth, 0 Refills, Maintenance, 09/25/20 11:52:00 EDT, Partial fill upon patient request if the prescription is for a schedule II opioid drug. Start Date: 09/25/20 Status: OrderedmetroNIDAZOLE 0.75% topical cream 1 applicator, Topically, 2 times a day, # 45 Gm, 1 Refills, Maintenance, 02/22/22 9:58:00 EDT, Cream, [facility]/pharmacy #[id number], Partial fill upon patient request if the prescription is for a schedule II opioid drug., 1 applicator Topically 2 times a day, 16... Start Date: 02/22/22 Status: Orderedrosuvastatin 10 mg oral tablet 1 tablet = 10 mg, By Mouth, Daily, # 30 tablet, 5 Refills, Maintenance, 02/22/22 9:58:00 EDT, Tablet, [facility]acy #[id number], Partial fill upon patient request if the prescription is for a schedule II opioid drug., 166.7, cm, 02/22/22 9:52:00 EDT, Height Start Date: 02/22/22 Status: OrderedVitamin B12 0 Refills, Maintenance, 01/18/22 10:02:00 EDT, Partial fill upon patient request if the prescriptionis for a schedule II opioid drug. Start Date: 01/18/22 Status: OrderedVitamin D3 oral tablet 1 tablet = 10 mcg, By Mouth, Daily, 0 Refills, Maintenance, 01/18/22 10:02:00 EDT, Partial fill uponpatient request if the prescription is for a schedule II opioid drug. Start Date: 01/18/22 Status: Ordered Problem List Condition Effective Dates Status Health Status Informant Herpes simplex 2(Confirmed) Active Fecal incontinence(Confirmed) Active Anxiety and depression(Confirmed) Active Hyperlipidemia(Confirmed) Active Advance care planning(Confirmed) Active Urge urinary incontinence(Confirmed) Active Social History Social History Type Response Smoking Status Never (less than 100 in life time) entered on: 11/02/20 Sex Female Care Team PersonnelName: Ashvin VANG, America Zamudio Address: [address] [place] [address]
--- OUTSIDE RECORDS SUMMARY | 2022-03-22 08:17 | XMS_ITS | Continuity of Care Document ---
:1950 Author Organization [facility] Address [address] [place] [address]- Care Team Providers Name Role Phone Ashvin VANG, America Zamudio Primary Care Physician [phone] [place] [facility] [place] 12[place]10/20 [facility] [address] [place] [address]- Allergies, Adverse Reactions, Alerts Substance Reaction Severity [...]
--- OUTSIDE RECORDS SUMMARY | 2022-03-22 08:17 | XMS_ITS | Continuity of Care Document ---
:1950 Author Organization [facility] Address [address] [facility], [address] [address]- Care Team Providers Name Role Phone Ashvin VANG, America Zamudio Primary Care Physician Encounter 02/01/22 - 02/08/22 [facility] [address], [address] [place] [id number]- Attending Physician: Froilan Blanco MD Admitting Physician: Froilan Blanco MD Referring Physician: Froilan Blanco MD Allergies, Adverse Reactions, Alerts Substance Reaction Severity Status Pollen Mild Active Other Environmental Allergy1 Act raman 1seasonal Immunizations Given and Recorded Vaccine Date Status Refusal Reason SARS-CoV-2 mRNA (gzjwrva-eoyv-szztk) vax1 10/11/21 Given SARS-CoV-2 (COVID-19) mRNA BNT-162b2 vac 10/02/20 Recorde d 1Result Comment: [facility]: [id number] Medications Savita By Mouth, 0 Refills, Maintenance, 09/25/20 11:52:00 EDT, Partial fill upon patient request if the prescription is for a schedule II opioid drug. Start Date: 09/25/20 Status: OrderedmetroNIDAZOLE 0.75% topical cream 1 application, Topically, 2 times a day, # 45 Gm, 0 Refills, Maintenance, 11/02/20 14:33:00 EDT, Cream, Partial fill upon patient request if the prescription is for a schedule II opioid drug. Start Date: 11/02/20 Status: Orderedrosuvastatin 10 mg oral tablet 1 [...] II opioid drug. Start Date: 11/02/20 Status: OrderedVitamin B12 0 Refills, Maintenance, 01/18/22 [...] Informant Herpes simplex 2(Confirmed) Active Hyperlipidemia(Confirmed) Active Fecal incontinence(Confirmed) Active Anxiety and depression(Confirmed) Active Urge urinary incontinence(Confirmed) Active Social History Social History Type Response Smoking Status Never (less than 100 in life time) entered on: 11/02/20 Sex Female
--- OUTSIDE RECORDS SUMMARY | 2022-03-22 08:17 | XMS_ITS | Continuity of Care Document ---
:1950 Author Organization [facility] Address [address] [place] [address]- Care Team Providers Name Role Phone Ashvin VANG, America Zamudio Primary Care Physician [place] [facility] [place] [facility] [address] [place] [address]- Allergies, Adverse Reactions, Alerts Substance Reaction Severity [...]
--- OUTSIDE RECORDS SUMMARY | 2022-03-22 08:17 | XMS_ITS | Continuity of Care Document ---
:1950 Author Organization [facility] Address [address] [place] [address]- Care Team Providers Name Role Phone Ashvin VANG, America Zamudio Primary Care Physician [phone] Encounter [facility] Date(s): 02/06/22 - 03/08/22 [facility] [address] [place], [place] [address] Allergies, Adverse Reactions, Alerts Substance Reaction Severity Status Pollen Mild Active Other Environmental Allergy1 Act raman 1seasonal Immunizations Given and Recorded Vaccine Date Status Refusal Reason pneumococcal 20-valent conjugate vaccine1 02/22/22 Given tetanus-diphtheria toxoids (Td)2 02/22/22 Given SARS-CoV-2 mRNA (kwieint-nlgb-ykpuj) vax 01/23/22 Recorde d SARS-CoV-2 mRNA (nfucoll-jbvw-hhjvw) vax3 10/11/21 Given SARS-CoV-2 (COVID-19) mRNA BNT-162b2 [...] pneumococcal 23-valent vaccine 03/12/17 Recorded 1Result Comment: [facility]: [id number] Comment: [facility]: [id number] Comment: [facility]: [id number] Medications Savita By Mouth, 0 Refills, Maintenance, 09/25/20 11:52:00 EDT, Partial fill upon patient request if the prescription is for a schedule II opioid drug. Start Date: 09/25/20 Status: OrderedmetroNIDAZOLE 0.75% topical cream 1 applicator, Topically, 2 times a day, # 45 Gm, 1 Refills, Maintenance, 02/22/22 9:58:00 EDT, Cream, [facility]/pharmacy #[id number], Partial fill upon patient request if [...] Team PersonnelName: Ashvin VANG, America Zamudio Address: [address] [place] [address]
== END 2022-03-22 10:07 | disposition home or self-care (01) ==
PROVIDERS: Emergency Provider Emergency Medicine; PCP Family Medicine
DX: S62.102A Fracture of unspecified carpal bone, left wrist, initial encounter for closed fracture (principal); S20.212A Contusion of left front wall of thorax, initial encounter; R10.12 Left upper quadrant pain; M79.602 Pain in left arm; R07.81 Pleurodynia; W01.0XXA Fall on same level from slipping, tripping and stumbling without subsequent striking against object, initial encounter; Y93.K1 Activity, walking an animal; Y92.480 Sidewalk as the place of occurrence of the external cause; Y99.9 Unspecified external cause status; Z79.899 Other long term (current) drug therapy
CPT/HCPCS: 71250; 73080; 73100; 74150; 99283; 99284